=== PATIENT | male | born 1990 | race Caucasian/White ===

== ENCOUNTER 2018-04-14 00:09 | Emergency (ER) | payer SELFPAY ==
[~2018-04-14] VITALS: Ht 180.3 cm; Wt 81.7 kg
== END 2018-04-14 03:36 | disposition home or self-care (01) ==
LOC: ER 00:09
DX: S83.005A Unspecified dislocation of left patella, initial encounter (principal); X50.9XXA Other and unspecified overexertion or strenuous movements or postures, initial encounter; F17.200 Nicotine dependence, unspecified, uncomplicated
CPT/HCPCS: 29505; 73564; 96372; 99283-25; J1885